=== PATIENT | female | born 1955 | race Caucasian/White ===

== ENCOUNTER 2023-11-11 20:50 | Inpatient (IN) | payer MEDICARE, OTHER, SELFPAY ==
[2023-11-11 16:56] VITALS: BP 165/81
[2023-11-11] MEDS: ZOSYN 50 IV (18:02)
[2023-11-11 18:06] VITALS: BP 136/57
[2023-11-11 18:08] LABS: % Basophils 0.4 % (0-2); % Eosinophils 0.6 % (0-6); % Immature Granulocytes 0.3 % (0-0.5); % Lymphocytes 14.2 % (20.5-51.1); % Monocytes 6.9 % (1.7-9.3); % Neutrophils 77.6 % (42.2-75.2); Absolute Eosinophils 0.1 10^3/uL (0-0.7); Absolute Lymphocytes 1.3 10^3/uL (1.2-3.4); Absolute Monocytes 0.7 10^3/uL (0.1-0.6); Absolute Neutrophils 7.3 10^3/uL (1.4-6.5); Hemoglobin 11.6 g/dL (12.0-16.0); Mean Corp Hgb Conc. 32.2 g/dL (33.0-37.0); Mean Corpuscular Hgb 30.4 pg (27.0-31.0); Mean Corpuscular Volume 94.2 fL (81.0-99.0); Mean Platelet Volume 8.9 fL (7.4-10.4); Nucleated Red Blood Cells % 0 %; Platelet Count 360 10^3/uL (130-400); Red Blood Cell Count 3.82 10^6/uL (4.20-5.40); Red Cell Dist. Width 13.1 % (11.5-14.5); White Blood Cell Count 9.4 10^3/uL (4.8-10.8)
[2023-11-11 18:19] LABS: Lactic Acid 0.6 mmol/L (0.7-2.0)
[2023-11-11 18:22] LABS: ALT (SGPT) 21 U/L (0-35); AST (SGOT) 22 U/L (14-36); Albumin 4.2 g/dl (3.5-5.0); Alkaline Phosphatase 69 U/L (38-126); Blood Urea Nitrogen 22 mg/dl (7-17); Calcium 9.7 mg/dl (8.4-10.2); Carbon Dioxide 27 mmol/L (22-30); Chloride 100 mmol/L (98-107); Glucose 85 mg/dl (70-99); Potassium 4.5 mmol/L (3.5-5.1); Sodium 134 mmol/L (135-145); Total Bilirubin 0.2 mg/dl (0.2-1.3); Total Protein 7.5 g/dl (6.3-8.2); eGFR > 60.00
[2023-11-11] MEDS: VANCOCIN 200 IV ×2 (18:36→23:41)
[2023-11-11 19:00] VITALS: BP 136/45
--- NOTE | 2023-11-11 19:26 | ED.GENMED ---
History of Present Illness
General
Chief Complaint: Skin Problem
Source: patient and other (Friend)
Exam Limitations: none
Time Seen by Provider: 11/11/23 17:21
Travel History
Have you had any contact with someone who has COVID-19?: No
Do you have any symptoms of coronavirus? Fever > 100 degrees, chills, cough, shortness of breath, sore throat, loss of taste or smell, muscle aches, or headache?: No
History of Present Illness
History of Present Illness:
68-year-old female with a history of rheumatoid arthritis and lupus who presents with worsening redness of bilateral lower EXTR knees, worsening ulcerative lesions. The patient history of pyoderma gangrenosum. Patient was seen by dermatology who
had cultures performed. They trialed gentamicin but the patient could not tolerate it was sent for IV antibiotics. Patient denies fevers but reports that the pain and redness is worsening. She is being treated for rheumatoid arthritis. She is
scheduled to maybe start Remicade as well
Past History
Past History
ED Past Medical History: Hypothyroidism, Psychiatric (Depression) and Other (Rheumatoid arthritis, lymphedema, pyoderma gangrenosum)
ED Past Surgical History: Orthopedic (Right hip surgery)
Social History
Tobacco: Non-smoker
Alcohol: None
Drug: None
Living: half-way
Phy Exam
Physical Exam
Physical Exam:
CONSTITUTIONAL Vital signs reviewed, Patient alert and oriented to person, place and time. Well-appearing
HEAD atraumatic, normocephalic.
EYES eyelids normal to inspection, Extraocular muscles intact, Conjunctiva normal, Sclera normal.
NECK normal range of motion, Trachea midline, no jugular venous distention.
RESP no respiratory distress
BACK No obvious deformities
UPPER EXTREMITY Gross Range of motion normal, gross motor strength normal
LOWER EXTREMITY Gross range of motion normal, Gross motor strength normal, significant redness bilaterally from the toes to the tibial tuberosity. There are petechial lesions at the proximal portion. There is diffuse redness of the lower
extremities. She has 2 large ulcerative lesions. She has an ulcerative lesion to the lateral aspect of the left lower extremity just above the lateral malleolus. She also has an ulcerative lesion to the medial aspect of the right lower extremity
just above the medial malleolus. There is an exudative base. She does have warm and well-perfused feet.
NEURO Speech normal, No focal motor deficits include, [place] coma scale 15, Memory normal, Cranial Nerves intact to screening exam.
SKIN Skin warm, dry, and normal in color.
PSYCHIATRIC Patient oriented to person place and time, Normal affect.
Course
Orders/Labs/Results
Orders:
Orders
11/11/23 17:41
Piperacillin/Tazo 3.375 Gram [Zosyn] 3.375 gram in 50 ml IV NOW
Vancomycin 1 Gram/200 ml [Vancocin] 1 gram in 200 ml IV NOW
11/11/23 17:57
Complete Blood Count/With Diff Urgent
Comprehensive Metabolic Panel Urgent
Lactic Acid Q4H
Comment: CANCEL 2nd LACTIC ACID IF 1st LACTIC ACID IS LESS THAN 2
Blood Culture Q30M
WALE Source: Blood/Venous
Specimen Description:
Blood Culture Q30M
WALE Source: Blood/Venous
Specimen Description:
11/11/23 21:45
Lactic Acid Q4H
Comment: CANCEL 2nd LACTIC ACID IF 1st LACTIC ACID IS LESS THAN 2
Abnormal Lab Results
11/11/23
17:57
RBC 3.82 L 10^6/uL
(4.20-5.40)
Hgb 11.6 L g/dL
(12.0-16.0)
Hct 36.0 L %
(37.0-47.0)
MCHC 32.2 L g/dL
(33.0-37.0)
Absolute Neuts (auto) 7.3 H 10^3/uL
(1.4-6.5)
Absolute Monos (auto) 0.7 H 10^3/uL
(0.1-0.6)
Neutrophils % 77.6 H %
(42.2-75.2)
Lymphocytes % 14.2 L %
(20.5-51.1)
Sodium 134 L mmol/L
(135-145)
BUN 22 H mg/dl
(7-17)
Creatinine 0.5 L mg/dL
(0.6-1.0)
Lactic Acid 0.6 L mmol/L
(0.7-2.0)
11/11/23 17:57
11/11/23 17:57
Vital Signs
Initial and Last Documented VS:
Initial Vital Signs
Temp Pulse Resp BP Pulse Ox
98.6 F 63 18 165/81 98
11/11/23 16:56 11/11/23 16:56 11/11/23 16:56 11/11/23 16:56 11/11/23 16:56
Last Documented Vital Signs
Temp Pulse Resp BP Pulse Ox
98.6 F 54 16 136/57 99
11/11/23 16:56 11/11/23 18:45 11/11/23 18:45 11/11/23 18:06 11/11/23 18:45
MDM/Problems Addressed
MDM/Problems Addressed:
Pyoderma gangrenosum, acute cellulitis, ulcerative skin lesion
*Pulse Oximetry
Patient hypoxic: no
*Critical Care Note
Total Time (30-74mins, 75-104mins- exclusive of procedures): Not Applicable
Data Reviewed
Review of Other/Old Records Reveals: Discharge Summary (From 2020)
Source: patient
Further Testing Considered But Not Given:
Considered ultrasound but no evidence of DVT
Patient Management
Discussion with other providers: Hospitalist
Escalation/DeEscalation of care consider admission/obs:
Sick 8-year-old female with progressive redness of the lower extremities. IV antibiotics. Admit
ED Attending Note
-
Portions of this chart may have been created with voice recognition software.� Occasional wrong word or��sound alike� substitutions may have occurred due to the inherent limitations of voice recognition software.
Discharge Plan
Departure
Patient Disposition: Admit
Date of Disposition: 11/11/23
Time of Disposition: 19:28
Admit to: Med/Surg
Presentation/result/management discussed w/ accepting MD/DO: Hospitalist
Discharge Problem:
Pyoderma gangrenosum, Cellulitis
Prescriptions:
No Action
levothyroxine 125 MCG tablet
125 mcg PO DAILY@0700
Patient Comments:
12/06/2020: PT STATES NEEDS BRAND NAME
ascorbic acid (vitamin C) [Vitamin C] 500 MG tablet
1,000 mg PO DAILY
Patient Comments:
Stopped for surgery
magnesium 250 MG tablet
500 mg PO DAILY@1200
Patient Comments:
10/10/2020: PT STATES HAS WITH HER, AND NEEDS AT NIGHT TO PROVENT LEG CRAMPS
cyanocobalamin (vitamin B-12) 5,000 MCG capsule
5,000 mcg PO DAILY
hydroxychloroquine 200 MG tablet
200 mg PO QPM
escitalopram oxalate 5 MG tablet
5 mg PO DAILY
cholecalciferol (vitamin D3) 2,000 UNITS tablet
2,000 units PO DAILY
Patient Comments:
Stopped for surgery
Lactobacillus acidophilus [Probiotic] 1 EACH capsule
2 ea PO DAILY
peg 400-propylene glycol (PF) [Systane (PF)] 1 EACH dropperette
2 drp BOTH EYES DAILYPRN PRN (Reason: dry eyes)
lorazepam 0.5 MG tablet
0.5 mg PO Q8H Qty: 12 0RF
docusate sodium 100 MG capsule
100 mg PO BID 0RF
celecoxib 200 MG capsule
200 mg PO DAILY Qty: 14 0RF
Rx Instructions:
Take with food.
Do not take within 2 hours of Aspirin.
pantoprazole 40 MG tablet,delayed release (DR/EC)
40 mg PO DAILY Qty: 14 0RF
Rx Instructions:
Take daily while on Celebrex.
ferrous sulfate [Slow Fe] 142 MG tablet extended release
142 mg PO DAILY Qty: 30 0RF
mupirocin 1 APPLIC ointment
1 applic topical TID Qty: 1 0RF
Rx Instructions:
Apply to sides of bilateral lower extremities due to stasis dermatitis.
mupirocin 1 APPLIC ointment
1 applic intranasal BID Qty: 1 0RF
Rx Instructions:
Apply to nares twice a day until incision is fully healed.
bisacodyl [OneLAX Bisacodyl] 10 MG suppository
10 mg OK DAILYPRN PRN (Reason: NO BM 8HRS AFTER MOM)
sodium phosphates [Enema] 135 ML enema
118 ml RC DAILYPRN PRN (Reason: NO BM 8RS AFTER SUPP)
metaxalone [Skelaxin] 800 MG tablet
800 mg PO TIDPRN PRN (Reason: MUSCLE SPASMS)
menthol [Icy Hot Advanced Relief Patch] 1 EACH adhesive patch,medicated
2 ea topical DAILY
pediatric multivitamin no.17 1 TABLET tablet,chewable
2 ea PO DAILY
magnesium hydroxide 30 ML suspension
30 ml PO HSPRN PRN (Reason: NO BM X2 DAYS)
acetaminophen 325 MG tablet
650 mg PO Q6HPRN PRN (Reason: mild pain/ fever>100.5F) 0RF
doxycycline hyclate 100 MG capsule
100 mg PO Q12 Qty: 14 0RF
polyethylene glycol 3350 17 GRAMS powder in packet
17 grams PO DAILY 0RF
aspirin 325 MG tablet
325 mg PO DAILY 0RF
prochlorperazine maleate 5 MG tablet
5 mg PO Q6HPRN PRN (Reason: nausea/vomiting) 0RF
tramadol 50 MG tablet
100 mg PO Q6HPRN PRN (Reason: moderate pain) Qty: 12 0RF
tramadol 50 MG tablet
50 mg PO Q6HPRN PRN (Reason: mild pain unrelieved by apap) Qty: 12 0RF
hydromorphone 2 MG tablet
2 mg PO Q4HPRN PRN (Reason: severe pain) Qty: 18 0RF
magnesium hydroxide 30 ML suspension
30 ml PO DAILYPRN PRN (Reason: constipation) 0RF
alum-mag hydroxide-simeth [Mag-Al Plus] 30 ML suspension
30 ml PO Q4HPRN PRN (Reason: INDIGESTION) 0RF
Referrals:
Andrea Mederos, DO [Family Provider] -
Interventions
Interventions:
*Risk Screen - Suicide Last Done: 11/11/23 16:56
*General Assessment Last Done: 11/11/23 16:56
*Neglect/Abuse Screening Last Done: 11/11/23 16:56
*ED COVID-19 Vaccine History Last Done: 11/11/23 16:56
ED-Skin Assessment Last Done: 11/11/23 18:00
[2023-11-11] MEDS: TYLENOL 1000 MG PO (19:34)
[2023-11-11 20:00] VITALS: BP 143/58
--- NOTE | 2023-11-11 20:23 | HPS.HSE ---
Addendum entered and electronically signed by Leo Liu MD 11/11/23 20:48:
Patient seen and examined independently with PA.� 68-year-old female past medical history of pyoderma gangrenosum, rheumatoid arthritis on Rinvoq, hypothyroidism, presenting for worsening bilateral redness and pain of lower extremities.� Patient
recently had wound culture and was prescribed gentamicin with worsening of symptoms over the past week by her suture polisher at [place] and so was recommended to come to the hospital for IV antibiotics.� Wound care, blood cultures, vancomycin/Zosyn.
Original Note:
Family Physician
-
Family Physician: Andrea Mederos
Chief Complaint
-
Worsening lower extremity wounds
History of Present Illness
Patient is a 68 y/o female with PMH of pyoderma gangrenosum, hypothyroidism, rheumatoid arthritis, and lupus who presented to the ED with worsening bilateral lower extremity wounds. Patient was seeing a suture polisher weekly for the past year for
management of her pyoderma gangrenosum. Last week she started seeing a new suture polisher who ordered wound cultures and gentamicin. Patient experienced worsening erythema of bilateral lower extremities upon staring gentamicin so this was
discontinued. Patient reports that when the cultures resulted, her suture polisher strongly recommended that she go to the ED for IV antibiotic therapy. She admits to low grade fever last week of 100.9F which improved with Tylenol. She denies sweats
or chills.
Medical History
Past Medical History
Past Medical History: Reports Other
Additional Past Medical History:
Pyoderma Gangrenosum
Hypothyroidism
Rheumatic Heart Disease
Rheumatoid Arthritis
Lupus
Irritable Bowel Syndrome
Anemia
Past Surgical History: Reports Other
Additional Past Surgical History:
Bilateral Total Knee Replacement
Right Total Hip Replacement
Right Total Hip Arthroplasty Revision
Resection Chin Osteosarcoma
Myomectomy
Social History
Tobacco: Non-smoker
Alcohol: None
Family History
Family History: Not pertinent
Allergies / Home Medications
Allergies reflects when Allergies were last updated in Spool.
Home Medications with original date entered in Spool
Allergy/Medication List:
Allergies
Allergy/AdvReac Type Severity Reaction Status Date / Time
codeine Allergy Hives, Verified 11/11/23 16:59
Redness,
Vomiting
latex Allergy Redness, Verified 11/11/23 16:59
Itching
Opioids - Morphine Analogues Allergy Nausea / Verified 11/11/23 16:59
Vomiting,
Dizziness
levofloxacin [From Levaquin] AdvReac SOB, Verified 11/11/23 16:59
'Pneumonia'
metronidazole [From Flagyl] AdvReac Hives, Verified 11/11/23 16:59
Redness,
Vomiting,
Swelling
Home Medications
ascorbic acid (vitamin C) 500 mg tablet (Vitamin C) 2,000 mg PO DAILY Supplement 10/10/20
levothyroxine 125 mcg tablet 125 mcg PO DAILY@0700 Thyroid 10/10/20
cholecalciferol (vitamin D3) 50 mcg (2,000 unit) tablet 2,000 units PO DAILY Supplement 06/06/21
pediatric multivitamin no.17 1 ea PO DAILY 07/01/21
acetaminophen 500 mg tablet 1,000 mg PO Q6H PRN mild pain 11/11/23
acetylcysteine 600 mg capsule (NAC) 600 mg PO DAILY@1500 11/11/23
cyanocobalamin (vitamin B-12) 1,000 mcg tablet (Vitamin B-12) 2,000 mcg PO DAILY 11/11/23
ibuprofen 600 mg tablet 600 mg PO Q8H PRN mild pain 11/11/23
upadacitinib 15 mg tablet,extended release 24 hr (Rinvoq) 15 mg PO DAILY@199911/11/23
Review of Systems
-
A 12 point ROS was completed and negative except as noted: Yes
Constitutional: Reports Fever (100.9 about one week ago)
Respiratory: Denies Cough or Trouble Breathing
Cardiac: Denies Chest Pain or Palpitations
Abdomen/GI: Denies Abdominal Pain, Nausea or Vomiting
Physical Exam
Vital Signs
Vital Signs
Temp Pulse Resp BP Pulse Ox
98.6 F 56 16 143/58 98
11/11/23 16:56 11/11/23 20:00 11/11/23 20:00 11/11/23 20:00 11/11/23 20:00
Physical Exam
General: Comfortable and Conversant
HEENT: Anicteric and Moist mucous membranes
Respiratory: Clear and Non Labored Respirations
Cardiac: S1/S2 and Regular Rhythm
GI: Soft and Non Tender
Rectal: Deferred by Provider
Musculoskeletal: No Clubbing and No Cyanosis
Skin: Other (Bilateral lower extremity wound with apparent areas of necrosis; Significant erythema bilateral lower ext from feet to just below the knees)
Neuro: Awake, Alert, Oriented and Nonfocal/grossly intact
Laboratory Results
-
11/11/23 17:57
11/11/23 17:57
Laboratory Results
Lactic Acid 0.6 mmol/L (0.7-2.0) L 11/11/23 17:57
Total Bilirubin 0.2 mg/dl (0.2-1.3) 11/11/23 17:57
AST 22 U/L (14-36) 11/11/23 17:57
ALT 21 U/L (0-35) 11/11/23 17:57
Alkaline Phosphatase 69 U/L (38-126) 11/11/23 17:57
Data Reviewed
-
Lab Data: Labs Reviewed by me
Impression/Plan
-
Worsening Bilateral Lower Extremity Wounds with Cellulitis
-Consult Wound Care
-Continue Vancomycin and Zosyn
-Await blood cultures
Hypothyroidism
-Continue levothyroxine
Rheumatoid Arthritis
-Hold Rinvoq given concern for acute infection
DVT proph: Lovenox
Code Status: Full Code
[2023-11-11 21:43] VITALS: BP 136/53; BMI 35.9
[2023-11-11 22:57] VITALS: BP 114/52
[2023-11-11] MEDS: TORADOL 15 MG IV (23:35)
[2023-11-12] MEDS: ZOSYN 50 IV ×5 (01:20→23:28)
[2023-11-12] MEDS: TYLENOL 1000 MG PO ×2 (05:10→15:31)
[2023-11-12] MEDS: NON-FORMULARY ITEM 125 MCG PO (05:11)
--- NOTE | 2023-11-12 06:11 | PTCARENOTE ---
Pt arrived onto floor @2143. Was able to ambulate into room with minimal assistance. Pt AAOx3 with stable vital signs. Pt oriented to room and call carvajal, will continue to monitor
[2023-11-12 07:00] VITALS: BP 141/61
[2023-11-12] MEDS: VITAMIN C 2000 MG PO (08:52)
[2023-11-12] MEDS: VITAMIN D3 (cholecalciferol) 50 MCG PO (08:52)
[2023-11-12] MEDS: VITAMIN B-12 2000 MCG PO (08:52)
--- NOTE | 2023-11-12 09:58 | PHA.VAN.IN ---
Assessment
- Assessment
Renal Function: Appears similar to baseline
Concomitant Antimicrobials: piperacillin/tazobactam
- Previous Dosing Experience
Previous Regimen: Vanc 1250mg Q12H
Date of Regimen: November 2020
Provided Trough of: 12
Provided AUC of: 430
Patient's SCR is: Similar to previous dosing experience
Patient's weight is: Similar to previous dosing experience
Regimen provided the following additional patient-specific pk:
Extrapolated Cmax (mcg/mL): 24.6
Extrapolated Cmin (mcg/mL): 12.4
Calculated ke: 0.0651
Calculated half life (H): 10.7
Calculated Vd (L): 89
Calculated Vanc CL (ml/min): 97
AUC Dosing Plan
- Dosing Variables
Dosing Weight (kg): 86
Dosing CrCl (ml/min): 91
Vd coefficient (L/kg): 0.7
- Empiric Dosing
Initial / Loading Dose: 2000mg - 18 (1g 18:36 PLUS 1g 23:41)
Maintenance Regimen: Vanc 1250mg Q12H starting at 1800
Estimated AUC (mcg*h/mL): 551
Estimated Peak (mcg*h/mL): 33.7
Estimated Trough (mcg/ml): 14.5
Estimated Half Life (H): 8.7
Based on prior experience, will dose empirically with 1250mg Q12H
Prior experience ~3 years ago, may have some decreased clearance since that time
- Monitoring
No levels ordered at this time: consider levels in next few days
Pharmacokinetics Vancomycin I
- -
Patient Age: 68
Patient Sex: Female
Vancomycin Day #: 1
Indication: Skin And Soft Tissue
Requesting Provider: Jeff Jensen
Pertinent Antimicrobial Allergies:
levofloxacin - SOB, pneumonia
metronidazole - hives, redness, vomiting, swelling
Height / Weight:
Height 5 ft 1 in
Actual Weight 86.183 kg
Pertinent Past Medical History: BMI ~36
- Vital Signs / Lab Results
Temp Pulse Resp BP Pulse Ox
98.6 F 47 17 141/61 97
11/12/23 07:00 11/12/23 07:00 11/12/23 07:00 11/12/23 07:00 11/12/23 07:00
Lab Results - Hematology
11/11/23
17:57
WBC 9.4
Lab Results - Chemistry
11/11/23
17:57
BUN 22 H
Creatinine 0.5 L
Albumin 4.2
11/11/23 11/11/23
17:57 21:45
Lactic Acid 0.6 L Cancelled
--- NOTE | 2023-11-12 11:21 | WOUNDNOTE ---
R MEDIAL LOWER LEG
--- NOTE | 2023-11-12 11:21 | WOUNDNOTE ---
L LATERAL LOWER LEG
--- NOTE | 2023-11-12 11:22 | WOUNDNOTE ---
WON RN note: Patient admitted with cellulitis of legs and ongoing Pyoderma Gangrenosum.
See H&P for complete history.
PMH: venous stasis ulcers, asthma, RA, lymphedema, cellulitis, bilateral knee replacements and PG of legs.
Wound Location and type/assessment: Both legs with redness and +1-2 edema, + palpable pedal pulses, heels blanchable red. Sacrum and buttocks are intact. Patient ambulated from bathroom to bed without difficulty. Patient complains of pain to legs
and wounds which has been going on for a long time. Patient known to service for Venous stasis dermal ulcers back in November 2020. She then followed up with [facility] December 2020. Unable to tolerate most dressings, steroids and compression. Takes Tylenol or
Motrin for pain patient states. Arterial Doppler done 10/11/20 report stated 'normal' Patient reports she has been seeing a electric truck crane operator at [place] named Dr. Das, she gave phone# [phone]. Reviewed with patient current wound care and skin care
per this electric truck crane operator, will try and confirm. Next step is going to be IV Remicade reports patient, to treat the PG.
Appetite: fair.
Pressure redistribution devices in place: [employer] Accumax. Patient independent with ADL's uses a cane.
Plan: Legs and wounds washed with Vashe, soaked open wounds for a few minutes, patient tolerated. Applied Vaseline to legs and feet, Vaseline applied to Telfa and placed into open wounds. Dressings to be changed bid, patient can take shower if ok
with hospitalist, instead of cleaning with Vashe. Encouraged LE elevation when sitting, refusing compression to legs. Called [facility] for Vashe and 3x3 size Telfa. Today used patient's supply of Telfa.
Will confirm orders with hospitalist and updated nurse [place]. Nursing care plan to be updated and will follow as needed. Note to case management requested for discharge: VN consult if patient wants.
Recommend follow with her electric truck crane operator upon discharge.
--- NOTE | 2023-11-12 11:27 | W.PN.HOSP.TC ---
Today's Communication/Plan
-
Monitor vital signs and see plan
Continue with antibiotics
Consult infectious disease
wound care
Assessment / Plan
Assessment / Plan
General: Comfortable and Conversant
HEENT: Anicteric and Moist mucous membranes
Respiratory: Clear and Non Labored Respirations
Cardiac: S1/S2 and Regular Rhythm
GI: Soft and Non Tender
Skin: Other (Bilateral lower extremity wound with apparent areas of necrosis; Significant erythema bilateral lower extremities)
Neuro: Awake, Alert, Oriented and Nonfocal/grossly intact
Worsening Bilateral Lower Extremity Wounds with superimposed cellulitis with pyoderma
Patient is currently following up with dermatology at [facility]; per patient she has not been able to tolerate steroids and due to side effect profile she does not want steroids
-Consult Wound Care consulted
Consult ID
would need wound cultures that were drawn in dermatology office; per patient its pseudomonas and few more bacteria
-Continue Vancomycin and Zosyn
-Await blood cultures
Hypothyroidism
-Continue levothyroxine
Mild hyponatremia
Monitor
Anemia of chronic disease
Monitor
Rheumatoid Arthritis
hx of Lupus
-Hold Rinvoq given concern for acute infection
per patient she is soon to be started on remicade infusions
DVT proph: Lovenox
Code Status: Full Code
Anticipated Discharge: > 48 hours
Subjective/Interval History
-
Date of Service: November 12, 2023
denies fever
Objective Data
-
Vital Signs:
Vital Signs
Temp Pulse Resp BP Pulse Ox
98.6 F 47 17 141/61 97
11/12/23 07:00 11/12/23 07:00 11/12/23 07:00 11/12/23 07:00 11/12/23 07:00
--- NOTE | 2023-11-12 13:32 | CM ---
Patient seen at bedside. Patient stated that she lives alone, in a rancher. Patient states that she has no DME at home. PCP Dr. Millan, [facility] [place] and she is considering [facility], [facility] or [facility] if VN recommended
closer to discharge. CM will continue to follow for discharge planning needs.
Plan; home with VN vs home with no needs.
[2023-11-12 15:00] VITALS: BP 142/65
--- NOTE | 2023-11-12 16:33 | CON.ID ---
Consultation
-
Date/Time Consultation Requested: 11/12/2023 1130
Date/Time Consultation Performed: 11/12/2023 1545
Requesting Provider: Dr. Villagran
Performing Provider: Dr. Heard
Reason for Consultation: Lower extremity cellulitis
Chief Complaint / Past History
History of Present Illness
Kayleigh Kendall is a 68-year-old female being evaluated at the request of Dr. Villagran in regards to lower extremity wounds and cellulitis. History is obtained from chart review, along with patient interview.
The patient is known to the Infectious Diseases service, having been seen in 2020 for lower extremity leg ulcerations. She additionally had previously been followed in the wound care center here at [facility]. She reports that she has been
followed in the outpatient setting by her student affairs dean who last week began her on topical gentamicin applied to the bilateral lower extremities. The patient reports that after a single application she developed increasing erythema and burning of
the lower extremities. She stopped further applications. She spoke with dermatology several days later and ultimately because of the leg discomfort was advised to come to the hospital for further evaluation.
She notes that she has been diagnosed with pyoderma gangrenosum, although she denies ever having a biopsy of the lower extremities stating that it would be too painful. She does not use lower extremity compressive modalities for the edema, stating
that 'my skin is too fragile and it would be too painful'.
At this time she notes 'stomach pains' secondary to the antibiotics that she has been prescribed here at the hospital and notes that her lower extremities are 'burning', but improved since she started the antibiotics. She denies any recent fevers
or chills.
Past History
Additional Past Medical History:
Rheumatoid arthritis
Lower extremity lymphedema
Obesity
Additional Past Surgical History:
Bilateral knee replacement
Allergy History:
codeine Allergy (Verified 11/11/23 16:59)
Hives, Redness, Vomiting
latex Allergy (Verified 11/11/23 16:59)
Redness, Itching
levofloxacin [From Levaquin] Allergy (Verified 11/11/23 21:17)
SOB, 'Pneumonia'
metronidazole [From Flagyl] Allergy (Verified 11/11/23 21:17)
Hives, Redness, Vomiting, Swelling
Opioids - Morphine Analogues Allergy (Verified 11/11/23 16:59)
Nausea / Vomiting, Dizziness
Medications Reviewed: Yes
Current Antibiotics:
Vancomycin
Zosyn
Social History
Tobacco: Non-Smoker
Alcohol: None
Drug: None
Personal: Single
Living: Alone
Employment: Retired
Family History
Family History: Not Pertinent
Review of Systems
Vital Signs
Temp Pulse Resp BP Pulse Ox
98 F 64 17 142/65 93
11/12/23 15:00 11/12/23 15:00 11/12/23 15:00 11/12/23 15:00 11/12/23 15:00
Physical Exam
Physical Exam
Constitutional: No Acute Distress, Comfortable, Chronically Ill and Non-toxic
Head: Normocephalic
Eyes: Pupils Equal, Pupils Round, No Conjunctival Hemorrhage and Sclera Anicteric
Oral: No Thrush and No Ulcers
Cardiovascular: S1/S2; Negative S3/S4 or Murmur
Pulmonary: Non Labored; Negative Wheezes, Rales or Rhonchi
Gastrointestinal: Non Tender, Non Distended and Normal Bowel Sounds
Extremities: Edema, Erythema and Venous Insufficiency (B/L LE's)
Wound: Other (Bilateral lower extremity wounds noted. Slough noted in base. Scant amount of dermal necrosis. No purulence)
Neurological: Awake and Alert
Psychological: Calm
.
Lab / Diagnostic Study Results
11/11/23 17:57
11/11/23 17:57
Abs Immat Gran (auto) 0.0 10^3/uL (0-0.05) 11/11/23 17:57
Absolute Neuts (auto) 7.3 10^3/uL (1.4-6.5) H 11/11/23 17:57
Absolute Lymphs (auto) 1.3 10^3/uL (1.2-3.4) 11/11/23 17:57
Absolute Monos (auto) 0.7 10^3/uL (0.1-0.6) H 11/11/23 17:57
Absolute Basos (auto) 0.0 10^3/uL (0-0.2) 11/11/23 17:57
Immature Gran % 0.3 % (0-0.5) 11/11/23 17:57
Neutrophils % 77.6 % (42.2-75.2) H 11/11/23 17:57
Lymphocytes % 14.2 % (20.5-51.1) L 11/11/23 17:57
Monocytes % 6.9 % (1.7-9.3) 11/11/23 17:57
Eosinophils % 0.6 % (0-6) 11/11/23 17:57
Basophils % 0.4 % (0-2) 11/11/23 17:57
Lactic Acid Cancelled 11/11/23 21:45
Microbiology Results
Micro:
11/12/23 00:06 MRSA Screen - Pending
Nose
11/11/23 17:57 Blood Culture - Pending
Blood/Venous
11/11/23 17:57 Blood Culture - Pending
Blood/Venous
Assessment / Plan
Lower extremity erythema
-Not clear whether secondary to cellulitis or contact dermatitis secondary to recent gentamicin application
Bilateral lower extremity wounds
Reported history of pyoderma gangrenosum
-Not clear how diagnosis was made as patient denies ever having been biopsied.
Obesity
Rheumatoid arthritis
Recommendations:
Continue with empiric vancomycin and Zosyn for the present.
Lower extremity elevation recommended to the patient, but patient declined secondary to hip discomfort from her rheumatoid arthritis
Advised lower extremity compression, but patient declined stating that it is too painful.
Follow for clinical improvement.
Little role for superficial wound culture as there is likely significant colonization of the skin and wounds with bacteria.
Will further discuss with Wound care tomorrow regarding local care to the lower extremities.
Follow Vanco levels.
Monitor white count and temperature curve.
Patient reports that she would like to shower, but in discussions with nursing, she has complained of weakness and has been found to be unsteady on her feet. Will await physical therapy evaluation of her tomorrow before allowing to shower.
Care Review
Plan reviewed with: Physician (Hospitalist)
[2023-11-12] MEDS: VANCOCIN 275 MG IV (18:03)
[2023-11-12] MEDS: TORADOL 15 MG IV (19:56)
[2023-11-12] MEDS: ZOFRAN 4 MG IV (20:02)
[2023-11-12 22:50] VITALS: BP 131/62
[2023-11-13] MEDS: TYLENOL 1000 MG PO ×3 (00:54→21:24)
[2023-11-13] MEDS: GAVISCON LIQUID 15 ML PO (01:56)
[2023-11-13] MEDS: ZOSYN 50 IV ×4 (05:26→23:06)
[2023-11-13] MEDS: TORADOL 15 MG IV ×2 (06:03→18:31)
[2023-11-13] MEDS: NON-FORMULARY ITEM 125 MCG PO (06:12)
[2023-11-13] MEDS: VANCOCIN 275 MG IV ×2 (06:59→18:20)
[2023-11-13 07:30] VITALS: BP 113/43
[2023-11-13 08:37] LABS: % Basophils 0.5 % (0-2); % Eosinophils 1.3 % (0-6); % Immature Granulocytes 0.3 % (0-0.5); % Lymphocytes 12.4 % (20.5-51.1); % Monocytes 7.7 % (1.7-9.3); % Neutrophils 77.8 % (42.2-75.2); Absolute Eosinophils 0.1 10^3/uL (0-0.7); Absolute Lymphocytes 0.8 10^3/uL (1.2-3.4); Absolute Monocytes 0.5 10^3/uL (0.1-0.6); Absolute Neutrophils 4.9 10^3/uL (1.4-6.5); Hematocrit 32.7 % (37.0-47.0); Hemoglobin 10.3 g/dL (12.0-16.0); Mean Corp Hgb Conc. 31.5 g/dL (33.0-37.0); Mean Corpuscular Hgb 30.2 pg (27.0-31.0); Mean Corpuscular Volume 95.9 fL (81.0-99.0); Nucleated Red Blood Cells % 0 %; Platelet Count 305 10^3/uL (130-400); Red Blood Cell Count 3.41 10^6/uL (4.20-5.40); Red Cell Dist. Width 13.5 % (11.5-14.5); White Blood Cell Count 6.3 10^3/uL (4.8-10.8)
[2023-11-13 09:10] LABS: ALT (SGPT) 16 U/L (0-35); AST (SGOT) 17 U/L (14-36); Albumin 3.6 g/dl (3.5-5.0); Alkaline Phosphatase 65 U/L (38-126); Blood Urea Nitrogen 21 mg/dl (7-17); Carbon Dioxide 28 mmol/L (22-30); Chloride 101 mmol/L (98-107); Estimated Creatinine Clearance 91 ml/min; Glucose 104 mg/dl (70-99); Potassium 4.2 mmol/L (3.5-5.1); Sodium 135 mmol/L (135-145); Total Bilirubin 0.5 mg/dl (0.2-1.3); Total Protein 6.6 g/dl (6.3-8.2); eGFR > 60.00
--- NOTE | 2023-11-13 09:30 | PHA.VAN.FU ---
Vancomycin Assessment / Plan
- Assessment
Renal Function: Stable
WBC's are: WNL
In the past 24 hrs, patient has been: Afebrile
Concomitant Antimicrobials: piperacillin/tazobactam
- Dosing Plan
Continue: Vanc 1250mg Q12H
- Monitoring Plan
Peak Level: 11/12 21:00
Trough Level: 11/13 05:30
Monitoring Comments: levels to be drawn after 3rd maintenance dose
- Follow Up
Pharmacy will continue to follow.
Vancomycin Follow UP
- -
Patient Age: 68
Patient Sex: Female
Vancomycin Day #: 2
Indication: Skin And Soft Tissue
Requesting Provider: Jeff Heard
Pertinent Antimicrobial Allergies:
levofloxacin - SOB, pneumonia
metronidazole - hives, redness, vomiting, swelling
Height / Weight:
Height 5 ft 1 in
Actual Weight 86.183 kg
Pertinent Past Medical History: BMI ~36
- Vital Signs / Lab Results
Temp Pulse Resp BP Pulse Ox
97.7 F 48 18 113/43 97
11/13/23 07:30 11/13/23 07:30 11/13/23 07:30 11/13/23 07:30 11/13/23 07:30
Lab Results - Hematology
11/11/23 11/13/23
17:57 08:08
WBC 9.4 6.3
Lab Results - Chemistry
11/11/23 11/13/23
17:57 08:08
BUN 22 H 21 H
Creatinine 0.5 L 0.6
Estimated Creat Clear 91
Albumin 4.2 3.6
11/11/23 11/11/23
17:57 21:45
Lactic Acid 0.6 L Cancelled
Microbiology Results
11/12/23 00:06 MRSA Screen - Final
Nose Staph aureus MRSA
11/11/23 17:57 Blood Culture - Preliminary
Blood/Venous No Growth in 24 hours- Final report to follow
11/11/23 17:57 Blood Culture - Preliminary
Blood/Venous No Growth in 24 hours- Final report to follow
[2023-11-13] MEDS: VITAMIN C 2000 MG PO (09:43)
[2023-11-13] MEDS: VITAMIN B-12 2000 MCG PO (09:43)
[2023-11-13] MEDS: VITAMIN D3 (cholecalciferol) 50 MCG PO (09:44)
--- NOTE | 2023-11-13 10:49 | W.PN.ID1 ---
Date of Service
Date of Service: November 13, 2023
Today's Communication
Continue current antibiotic
Assessment / Plan
Lower extremity erythema
-Not clear whether secondary to cellulitis or contact dermatitis secondary to recent gentamicin application
Bilateral lower extremity wounds
Reported history of pyoderma gangrenosum
-Patient reports history of biopsy of area
Suspected bilateral lower extremity venous insufficiency
Obesity
Rheumatoid arthritis
Recommendations:
Continue with empiric vancomycin and Zosyn for the present.
Lower extremity elevation recommended to the patient, but patient declined secondary to hip discomfort from her rheumatoid arthritis
Advised lower extremity compression, but patient declined stating that it is too painful.
Follow for clinical improvement.
Etiology of fine LE pustules unclear. Will sample; hopefully culture may guide etiology.
Follow Vanco levels.
Monitor white count and temperature curve.
����������������������������������������������������������
Chief Complaint
-: Cellulitis
Subjective / Review of Systems
Review of Systems: No Fever and No Chills
Vital Signs / Physical Exam
Vital Signs
Vital Signs
Temp Pulse Resp BP Pulse Ox
97.7 F 48 18 113/43 97
11/13/23 07:30 11/13/23 07:30 11/13/23 07:30 11/13/23 07:30 11/13/23 07:30
Physical Exam
Constitutional: No Acute Distress, Comfortable, Chronically Ill and Non-toxic
Eyes: Sclera Anicteric
Pulmonary: Non Labored
Extremities: Edema, Erythema, Venous Insufficiency and Other (Diffuse pustules over bilateral lower extremities)
Wound: Other (Bilateral lower extremity wounds noted; left distal lateral leg, right distal medial leg)
Neurological: Awake and Alert
Psychological: Calm
Objective Data
Lab Data
Lab Results
11/13/23 08:08
11/13/23 08:08
Estimated Creat Clear 91 ml/min 11/13/23 08:08
Lactic Acid Cancelled 11/11/23 21:45
Total Bilirubin 0.5 mg/dl (0.2-1.3) 11/13/23 08:08
AST 17 U/L (14-36) 11/13/23 08:08
ALT 16 U/L (0-35) 11/13/23 08:08
Alkaline Phosphatase 65 U/L (38-126) 11/13/23 08:08
Most recent labs reviewed.
Micro Results:
11/12/23 00:06 MRSA Screen - Final
Nose Staph aureus MRSA
11/11/23 17:57 Blood Culture - Preliminary
Blood/Venous No Growth in 24 hours- Final report to follow
11/11/23 17:57 Blood Culture - Preliminary
Blood/Venous No Growth in 24 hours- Final report to follow
Care Review
Plan reviewed with: Other (Wound Care Nurse)
--- NOTE | 2023-11-13 11:12 | CM ---
Patient seen bedside.
patient with lower extremity cellulitis and wounds.
patient with multiple concerns re when will she be discharged, who her doctors are, wound care, if she can shower, and if she could get Ensure ordered.
Patient with [facility] in the past and would like to have them again at d/c.
Wound cx pending.
Plan: home with [facility] when stable.
--- NOTE | 2023-11-13 11:44 | W.PN.HOSP.TC ---
Today's Communication/Plan
-
Monitor vitals
See plan
Follow wound cultures
Continue with antibiotics
Assessment / Plan
Assessment / Plan
General: Comfortable and Conversant
HEENT: Anicteric and Moist mucous membranes
Respiratory: Clear and Non Labored Respirations
Cardiac: S1/S2 and Regular Rhythm
GI: Soft and Non Tender
Skin: Other (Bilateral lower extremity wound with apparent areas of necrosis; Significant erythema bilateral lower extremities)
Neuro: Awake, Alert, Oriented and Nonfocal/grossly intact
Worsening Bilateral Lower Extremity Wounds with superimposed cellulitis with pyoderma
Patient is currently following up with dermatology at [facility]; per patient she has not been able to tolerate steroids and due to side effect profile she does not want steroids
-Wound Care following
ID following
Follow wound cultures
-Continue Vancomycin and Zosyn
-blood cultures pending
Hypothyroidism
-Continue levothyroxine
Mild hyponatremia
Monitor
Anemia of chronic disease
Monitor
Rheumatoid Arthritis
hx of Lupus
-Hold Rinvoq given concern for acute infection
per patient she is soon to be started on remicade infusions
DVT proph: Lovenox
Code Status: Full Code
Anticipated Discharge: 24 - 48 hours
Subjective/Interval History
-
Date of Service: November 13, 2023
does have some pain
Objective Data
-
Labs:
Laboratory Results
11/13/23
08:08
WBC 6.3
Hgb 10.3 L
Hct 32.7 L
Plt Count 305
Sodium 135
Potassium 4.2
Chloride 101
Carbon Dioxide 28
BUN 21 H
Creatinine 0.6
Glucose 104 H
Calcium 9.0
Total Bilirubin 0.5
AST 17
ALT 16
Alkaline Phosphatase 65
Vital Signs:
Vital Signs
Temp Pulse Resp BP Pulse Ox
97.7 F 48 18 113/43 97
11/13/23 07:30 11/13/23 07:30 11/13/23 07:30 11/13/23 07:30 11/13/23 07:30
I&O
11/12/23 11/13/23 11/14/23
06:59 06:59 06:59
Intake Total 2415 / 2415
Balance 2415 / 2415
--- NOTE | 2023-11-13 15:33 | VNURNOTE ---
Home Health Liaison met with patient at 1445 to discuss [facility] nurse/therapy, visits, schedule and homebound status. Patient is agreeable and understands that visits at home will be 2-3 x per week to assess and teach medical management and wound care.
Patient stated that she is able to do wound care on days there is no SN visit.
[facility] brochure provided with contact information. Patient is aware that [facility] will contact her for start of care in 1-2 days after discharge from .
[facility] referral completed in [facility].
[2023-11-13 16:15] VITALS: BP 117/59
[2023-11-13] MEDS: ZOFRAN 4 MG IV (20:29)
[2023-11-13 21:12] LABS: Vancomycin Peak 30.9 ug/ml (18-26)
[2023-11-13 23:36] VITALS: BP 140/49
[2023-11-14] MEDS: TORADOL 15 MG IV ×3 (00:07→21:04)
[2023-11-14] MEDS: TYLENOL 1000 MG PO ×3 (04:42→17:32)
[2023-11-14] MEDS: ZOSYN 50 IV ×2 (05:41→12:30)
[2023-11-14] MEDS: NON-FORMULARY ITEM 125 MCG PO (05:45)
[2023-11-14] MEDS: VANCOCIN 275 MG IV (06:28)
[2023-11-14 06:56] LABS: % Basophils 0.5 % (0-2); % Immature Granulocytes 0.2 % (0-0.5); % Lymphocytes 15.2 % (20.5-51.1); % Monocytes 7.5 % (1.7-9.3); % Neutrophils 74.6 % (42.2-75.2); Absolute Eosinophils 0.1 10^3/uL (0-0.7); Absolute Monocytes 0.5 10^3/uL (0.1-0.6); Absolute Neutrophils 4.8 10^3/uL (1.4-6.5); Hematocrit 32.2 % (37.0-47.0); Hemoglobin 10.4 g/dL (12.0-16.0); Mean Corp Hgb Conc. 32.3 g/dL (33.0-37.0); Mean Corpuscular Hgb 30.4 pg (27.0-31.0); Mean Corpuscular Volume 94.2 fL (81.0-99.0); Mean Platelet Volume 9.1 fL (7.4-10.4); Nucleated Red Blood Cells % 0 %; Platelet Count 290 10^3/uL (130-400); Red Blood Cell Count 3.42 10^6/uL (4.20-5.40); Red Cell Dist. Width 13.3 % (11.5-14.5); White Blood Cell Count 6.4 10^3/uL (4.8-10.8)
[2023-11-14 07:21] LABS: Vancomycin Trough 16.2 ug/ml (5-20)
[2023-11-14 07:25] LABS: ALT (SGPT) 16 U/L (0-35); AST (SGOT) 18 U/L (14-36); Albumin 3.7 g/dl (3.5-5.0); Alkaline Phosphatase 66 U/L (38-126); Blood Urea Nitrogen 20 mg/dl (7-17); Calcium 9.1 mg/dl (8.4-10.2); Carbon Dioxide 26 mmol/L (22-30); Chloride 100 mmol/L (98-107); Estimated Creatinine Clearance 91 ml/min; Glucose 100 mg/dl (70-99); Potassium 4.5 mmol/L (3.5-5.1); Sodium 135 mmol/L (135-145); Total Bilirubin 0.4 mg/dl (0.2-1.3); Total Protein 6.7 g/dl (6.3-8.2); eGFR > 60.00
[2023-11-14 07:30] VITALS: BP 124/52
--- NOTE | 2023-11-14 08:34 | PHA.VAN.FU ---
Vancomycin Assessment / Plan
- Assessment
Renal Function: Stable
WBC's are: WNL
In the past 24 hrs, patient has been: Afebrile
Concomitant Antimicrobials: piperacillin/tazobactam
- Assessment - Therapeutic Drug Monitoring
Extrapolated Cmax (mcg/mL): 33
Peak level was drawn: Less than 1 hour after previous dose (level drawn just less than 1H after end of prior infusion (~0.95H) which may lead to overstimation of peak and AUC and understimation of half-life)
Extrapolated Cmin (mcg/mL): 16.2
Trough Drawn: Appropriately
Levels were drawn: At steady state (levels drawn after 3rd maintenance dose)
Calculated AUC (mcg*h/mL): 569
Calculated ke: 0.0676
Calculated half life (H): 10.2
Calculated Vd (L): 64.91
Calculated Vanc CL (ml/min): 73
Unclear how much calculations are impacted by peak being drawn slightly early
Patient may still have additional accumulation and trough is higher than prior experience
- Dosing Plan
Adjust Regimen to: Vanc 1000mg Q12H
New Regimen Predicts: AUC (471), Peak (27.7), Trough (13.2)
- Monitoring Plan
No level(s) ordered at this time: consider repeat levels in next few days
- Follow Up
Pharmacy will continue to follow.
Vancomycin Follow UP
- -
Patient Age: 68
Patient Sex: Female
Vancomycin Day #: 3
Indication: Skin And Soft Tissue
Requesting Provider: Jeff Jensen / Félix
Pertinent Antimicrobial Allergies:
levofloxacin - SOB, pneumonia
metronidazole - hives, redness, vomiting, swelling
Height / Weight:
Height 5 ft 1 in
Actual Weight 86.183 kg
Pertinent Past Medical History: BMI ~36
- Vital Signs / Lab Results
Temp Pulse Resp BP Pulse Ox
97.5 F 46 18 124/52 100
11/14/23 07:30 11/14/23 07:30 11/14/23 07:30 11/14/23 07:30 11/14/23 07:30
Lab Results - Hematology
11/11/23 11/13/23 11/14/23
17:57 08:08 06:20
WBC 9.4 6.3 6.4
Lab Results - Chemistry
11/11/23 11/13/23 11/14/23
17:57 08:08 06:20
BUN 22 H 21 H 20 H
Creatinine 0.5 L 0.6 0.6
Estimated Creat Clear 91 91
Albumin 4.2 3.6 3.7
11/11/23 11/11/23
17:57 21:45
Lactic Acid 0.6 L Cancelled
Microbiology Results
11/11/23 17:57 Blood Culture - Preliminary
Blood/Venous No Growth in 48 hours- Final report to follow
11/11/23 17:57 Blood Culture - Preliminary
Blood/Venous No Growth in 48 hours- Final report to follow
11/13/23 11:07 Gram Stain - Preliminary
Leg - Left
11/12/23 00:06 MRSA Screen - Final
Nose Staph aureus MRSA
Therapeutic Drug Monitoring
Vancomycin Peak 30.9 ug/ml (18-26) H 11/13/23 20:47
Vancomycin Trough 16.2 ug/ml (5-20) 11/14/23 06:20
[2023-11-14] MEDS: VITAMIN D3 (cholecalciferol) 50 MCG PO (08:43)
[2023-11-14] MEDS: VITAMIN B-12 2000 MCG PO (08:43)
[2023-11-14] MEDS: VITAMIN C 2000 MG PO (08:43)
--- NOTE | 2023-11-14 13:00 | W.PN.HOSP.TC ---
Addendum entered and electronically signed by Yasir Patel MD 11/14/23 17:04:
Total time spent on d/c = 34 min. This included today's physical exam, progress note, review of laboratory and diagnostic data, preparation of discharge documents and prescriptions, and discussions about the pt's hospital course and discharge plan
with the patient and other medical doctor md involved in the patient's care.
Original Note:
Today's Communication/Plan
-
Will discuss timing of discharge with infectious disease.
Assessment / Plan
Assessment / Plan
Gen: NAD, AAOx3.
Eyes: EOMI, PERRLA, no scleral icterus.
Neck: supple.
CV: RRR, +S1/S2, no m/r/g.
Resp: CTAB, no rales, wheezes, or rhonchi.
Abd: +BS, soft, NT, ND
Skin: Both lower extremities with well-demarcated erythema with skin desquamation just distal to the knees. Both lower extremities have ulcers without purulent discharge.
Neuro: CN 2-12 intact, non-focal.
Psych: Normal mood and affect.
Worsening Bilateral Lower Extremity Wounds due to underlying pyoderma gangrenosum with superimposed cellulitis:
-currently following with dermatology at [facility]; per patient she has not been able to tolerate steroids and due to side effect profile she does not want steroids
-Wound Care following
-Continue Vanco/Zosyn as per ID
-BCxs NG x 48 hours
Other problems:
Hypothyroidism: Continue levothyroxine
Mild hyponatremia
Anemia of chronic disease
Rheumatoid Arthritis
h/o Lupus: holding Rinvoq given concern for acute infection. Per patient she is soon to be started on remicade infusions.
FULL/Lovenox
Anticipated Discharge: Within 24 hours
Subjective/Interval History
-
Date of Service: November 14, 2023
No new complaints.
Objective Data
-
Labs:
Laboratory Results
11/14/23
06:20
WBC 6.4
Hgb 10.4 L
Hct 32.2 L
Plt Count 290
Sodium 135
Potassium 4.5
Chloride 100
Carbon Dioxide 26
BUN 20 H
Creatinine 0.6
Glucose 100 H
Calcium 9.1
Total Bilirubin 0.4
AST 18
ALT 16
Alkaline Phosphatase 66
Vital Signs:
Vital Signs
Temp Pulse Resp BP Pulse Ox
97.5 F 46 18 124/52 100
11/14/23 07:30 11/14/23 07:30 11/14/23 07:30 11/14/23 07:30 11/14/23 07:30
I&O
11/13/23 11/14/23 11/15/23
06:59 06:59 06:59
Intake Total 2415 / 2415 720 / 720
Balance 2415 / 2415 720 / 720
--- NOTE | 2023-11-14 14:39 | W.PN.ID1 ---
Date of Service
Date of Service: November 14, 2023
Today's Communication
Consolidate antibiotics to doxycycline and topical clotrimazole
Assessment / Plan
Lower extremity erythema
-Not clear whether secondary to cellulitis or contact dermatitis secondary to recent gentamicin application
- possible fungal component
Bilateral lower extremity wounds
Reported history of pyoderma gangrenosum
-Patient reports history of biopsy of area
Suspected bilateral lower extremity venous insufficiency
Obesity
Rheumatoid arthritis
Recommendations:
At present, not clear if erythema is cellulitis or dermatitis. Little improvement on broad-spectrum antibiotics which may make the latter diagnosis more likely.
Lower extremity elevation recommended to the patient, but patient declined secondary to hip discomfort from her rheumatoid arthritis
Advised lower extremity compression, but patient declined stating that it is too painful.
Etiology of fine LE pustules unclear, although budding hyphae seen on microscopy.
Would add topical clotrimazole, to start in a more localized area and see if there is any improvement.
I have placed a call out to the patient's dam worker (Dr. Sarah Das M.D. at [facility]). The patient reports that she will be seeing her very early next week.
Will switch to oral doxycycline.
����������������������������������������������������������
Chief Complaint
-: Cellulitis
Subjective / Review of Systems
Review of Systems: No Fever and No Chills
Vital Signs / Physical Exam
Vital Signs
Vital Signs
Temp Pulse Resp BP Pulse Ox
97.5 F 46 18 124/52 100
11/14/23 07:30 11/14/23 07:30 11/14/23 07:30 11/14/23 07:30 11/14/23 07:30
Physical Exam
Constitutional: Comfortable and Non-toxic
Eyes: Sclera Anicteric
Gastrointestinal: Non Distended
Extremities: Edema, Erythema and Other (diffuse pustules LE's B/L. Extreamly friable skin.)
Neurological: Awake and Alert
Psychological: Calm
Objective Data
Lab Data
Lab Results
11/14/23 06:20
11/14/23 06:20
Estimated Creat Clear 91 ml/min 11/14/23 06:20
Lactic Acid Cancelled 11/11/23 21:45
Total Bilirubin 0.4 mg/dl (0.2-1.3) 11/14/23 06:20
AST 18 U/L (14-36) 11/14/23 06:20
ALT 16 U/L (0-35) 11/14/23 06:20
Alkaline Phosphatase 66 U/L (38-126) 11/14/23 06:20
Most recent labs reviewed.
Micro Results:
11/11/23 17:57 Blood Culture - Preliminary
Blood/Venous No Growth in 48 hours- Final report to follow
11/11/23 17:57 Blood Culture - Preliminary
Blood/Venous No Growth in 48 hours- Final report to follow
11/13/23 11:07 Wound Culture - Pending
Leg - Left Gram Stain - Preliminary
11/12/23 00:06 MRSA Screen - Final
Nose Staph aureus MRSA
Care Review
Plan reviewed with: Physician (Hospitalist)
--- NOTE | 2023-11-14 15:16 | CM ---
Patient seen bedside.
Patient with LE wounds open to air.
Per patient plan remains home with [facility].
Plan: home with [facility] when stable.
[2023-11-14 15:30] VITALS: BP 116/43
--- NOTE | 2023-11-14 17:05 | W.DCSUMMARY ---
Discharge Summary
Discharge Data
Date of Admission: 11/11/23
Date of Discharge: 11/15/23
-
Pending Results: No
Hospital Course
Primary diagnoses:
Bilateral lower extremity chronic venous stasis dermatitis with possible pyoderma gangrenosum and possible superimposed cellulitis
Secondary diagnoses:
Hypothyroidism
Mild hyponatremia
Anemia of chronic disease
Rheumatoid Arthritis
h/o Lupus
Consultants:
Infectious disease
Imaging:
None
Hospital course: 68-year-old female who presented with chief complaint of worsening bilateral lower extremity wound as outlined in the H&P done on admission. Patient reportedly had a history of pyoderma gangrenosum. She had been seeing a
watch assembler for the management of this. She felt her erythema was worsening. She was placed on vancomycin and Zosyn. She was seen in consultation by infectious disease as well as wound care. She had no leukocytosis and was afebrile throughout
hospitalization. I discussed the case with Dr. Heard on the day of discharge. He felt the patient had chronic venous stasis dermatitis and possibly superimposed cellulitis with a possible fungal component. He recommended discharge on
clotrimazole topically and 1 week of doxycycline.
Discharge Plan
-
Patient Disposition: Home (Routine Discharge)
Discharge Diagnosis/Procedures: Bilateral lower extremity chronic venous stasis dermatitis with possible pyoderma gangrenosum and possible superimposed cellulitis
Condition: Good
Diet: No restrictions
Activity: As tolerated
Additional Activity: Recommend elevating legs when not ambulating
Driving Restrictions: As prior to admission
Bathing Restrictions: None
Activity Restrictions/Additional Instructions:
Wound Care Instructions
Legs: clean legs and feet with Vashe, soak wounds for few minutes with Vashe.
Can also shower to clean legs and wounds if able.
Apply Vaseline to legs and feet, Vaseline onto Telfa then place into open wounds. Dressings to be changed bid.
Leg elevation when sitting
Follow up with [employer]
Referrals:
Andrea Mederos, DO [Family Provider] - in less than 1 week
Prescriptions:
New
doxycycline hyclate 100 mg Capsule
100 mg PO Q12 Qty: 15 0RF
clotrimazole [Athlete's Foot (clotrimazole)] 1 % Cream
1 applic topical BID Qty: 90 0RF
Continued
levothyroxine 125 MCG tablet
125 mcg PO DAILY@0700
Patient Comments:
11/11/2023: PT STATES NEEDS BRAND NAME Pt brought with her.
ascorbic acid (vitamin C) [Vitamin C] 500 MG tablet
2,000 mg PO DAILY
Patient Comments:
Stopped for surgery
cholecalciferol (vitamin D3) 2,000 UNITS tablet
2,000 units PO DAILY
Patient Comments:
Stopped for surgery
pediatric multivitamin no.17 1 TABLET tablet,chewable
1 ea PO DAILY
ibuprofen 600 mg tablet
600 mg PO Q8H PRN (Reason: mild pain)
Rinvoq 15 mg tablet extended release 24 hr
15 mg PO DAILY@2000
Patient Comments:
11/11/2023: Pt brought with her
cyanocobalamin (vitamin B-12) [Vitamin B-12] 1,000 mcg Tablet
2,000 mcg PO DAILY
acetaminophen 500 mg Tablet
1,000 mg PO Q6H PRN (Reason: mild pain)
acetylcysteine [NAC] 600 mg Capsule
600 mg PO DAILY@1500
Discharge Orders:
Discharge Patient (As Directed); Ordered 11/14/23
Ordered By: Yasir Patel
[2023-11-14] MEDS: VIBRAMYCIN 100 MG PO (20:46)
[2023-11-14] MEDS: LOTRIMIN 1% CREAM 1 APPLIC TOPICAL (21:27)
[2023-11-14 22:58] VITALS: BP 139/59
[2023-11-15] MEDS: TYLENOL 1000 MG PO ×2 (01:07→08:02)
[2023-11-15] MEDS: TORADOL 15 MG IV (03:54)
--- NOTE | 2023-11-15 07:49 | W.PN.HOSP.TC ---
Today's Communication/Plan
-
pt was discharge yesterday, will leave today
Assessment / Plan
Assessment / Plan
Gen: NAD, AAOx3.
Eyes: EOMI, PERRLA, no scleral icterus.
Neck: supple.
CV: remains RRR, +S1/S2, no m/r/g.
Resp: remains CTAB, no rales, wheezes, or rhonchi.
Abd: +BS, soft, NT, ND
Skin: Both lower extremities with well-demarcated erythema with skin desquamation just distal to the knees. Both lower extremities have ulcers without purulent discharge.
Neuro: CN 2-12 intact, non-focal.
Psych: Normal mood and affect.
Worsening Bilateral Lower Extremity Wounds due to underlying pyoderma gangrenosum with superimposed cellulitis:
-currently following with dermatology at [facility]; per patient she has not been able to tolerate steroids and due to side effect profile she does not want steroids
-Wound Care following
-was on Vanco/Zosyn, now on Doxy/Clotrimazole as per ID
-BCxs NG x 48 hours
Other problems:
Hypothyroidism: Continue levothyroxine
Mild hyponatremia
Anemia of chronic disease
Rheumatoid Arthritis
h/o Lupus: holding Rinvoq given concern for acute infection. Per patient she is soon to be started on remicade infusions.
FULL/Lovenox
Pt was discharged yesterday.
Anticipated Discharge: Today
Subjective/Interval History
-
Date of Service: November 15, 2023
No new complaints.
Objective Data
-
Vital Signs:
Vital Signs
Temp Pulse Resp BP Pulse Ox
97.8 F 49 18 139/59 97
11/14/23 22:58 11/14/23 22:58 11/14/23 22:58 11/14/23 22:58 11/14/23 22:58
I&O
11/14/23 11/15/23 11/16/23
06:59 06:59 06:59
Intake Total 720 / 720 720 / 720
Balance 720 / 720 720 / 720
[2023-11-15] MEDS: VITAMIN B-12 2000 MCG PO (07:59)
[2023-11-15] MEDS: VITAMIN D3 (cholecalciferol) 50 MCG PO (07:59)
[2023-11-15] MEDS: NON-FORMULARY ITEM 1 MCG PO (07:59)
[2023-11-15] MEDS: LOTRIMIN 1% CREAM TOPICAL (07:59)
[2023-11-15] MEDS: VITAMIN C 2000 MG PO (07:59)
[2023-11-15] MEDS: VIBRAMYCIN 100 MG PO ×2 (07:59→18:00)
[2023-11-15 08:07] VITALS: BP 160/61
--- NOTE | 2023-11-15 09:18 | CM ---
Patient seen at bedside. Patient stated that she will have her son transport her home after work and nurse was aware of discharge and getting patient medications as per request. Patient completed IMM and signed form placed on chart. Patient with
questions about restarting of medications and physician addressed. CM will continue to follow for discharge planning needs.
Plan; home with [facility] to follow
--- NOTE | 2023-11-15 13:36 | W.PN.ID1 ---
Date of Service
Date of Service: November 15, 2023
Today's Communication
Continue antibiotics
Assessment / Plan
Lower extremity erythema
-Not clear whether secondary to cellulitis or contact dermatitis secondary to recent gentamicin application
- possible fungal component +/- some type of pustular dermatosis.
Bilateral lower extremity wounds
Reported history of pyoderma gangrenosum
-Patient reports history of biopsy of area, although current event producer reports no note of pathology or biopsy in reviewed notes from prior event producer.
Suspected bilateral lower extremity venous insufficiency
Obesity
Rheumatoid arthritis
Recommendations:
At present, not clear if erythema is cellulitis or dermatitis. Little improvement on broad-spectrum antibiotics which may make the latter diagnosis more likely.
Lower extremity elevation recommended to the patient, but patient declined secondary to hip discomfort from her rheumatoid arthritis. I have counseled her on the importance of lower extremity elevation. I have suggested that the use of a couch
with legs elevated may be more beneficial than attempting to raise her legs and only in a recliner.
Advised lower extremity compression, but patient declined stating that it is too painful.
Etiology of fine LE pustules unclear, although budding hyphae seen on microscopy.
I spoke to the patient's event producer (Dr. Sarah Das M.D. at [facility]) yesterday. The will be seeing her very early next week.
Continue oral doxycycline.
Of note, full cultures of the leg are not back yet. These were superficial cultures and it would be exceedingly difficult to determine colonization versus infecting organisms.
����������������������������������������������������������
Chief Complaint
-: Cellulitis
Subjective / Review of Systems
Patient seen and examined. Currently sitting on edge of bed with legs dependent. Clotrimazole applied to the legs this a.m., although patient found the application to painful especially in the feet area.
Review of Systems: No Fever and No Chills
Vital Signs / Physical Exam
Vital Signs
Vital Signs
Temp Pulse Resp BP Pulse Ox
97.7 F 46 16 160/61 100
11/15/23 08:07 11/15/23 08:07 11/15/23 08:07 11/15/23 08:07 11/15/23 08:07
Physical Exam
Constitutional: No Acute Distress, Comfortable and Non-toxic
Pulmonary: Non Labored
Extremities: Edema and Erythema
Objective Data
Lab Data
Lab Results
11/14/23 06:20
11/14/23 06:20
Estimated Creat Clear 91 ml/min 11/14/23 06:20
Lactic Acid Cancelled 11/11/23 21:45
Total Bilirubin 0.4 mg/dl (0.2-1.3) 11/14/23 06:20
AST 18 U/L (14-36) 11/14/23 06:20
ALT 16 U/L (0-35) 11/14/23 06:20
Alkaline Phosphatase 66 U/L (38-126) 11/14/23 06:20
Most recent labs reviewed.
Micro Results:
11/13/23 11:07 Wound Culture - Preliminary
Leg - Left Gram negative bacilli
Staphylococcus aureus
Hilary albicans
Gram Stain - Preliminary
11/11/23 17:57 Blood Culture - Preliminary
Blood/Venous No Growth in 72 hours- Final report to follow
11/11/23 17:57 Blood Culture - Preliminary
Blood/Venous No Growth in 72 hours- Final report to follow
11/12/23 00:06 MRSA Screen - Final
Nose Staph aureus MRSA
Care Review
Plan reviewed with: Physician (Hospitalist)
[2023-11-15 15:02] VITALS: BP 138/68
== END 2023-11-15 18:39 | disposition home health service (06) | DRG 603 ==
LOC: 4 WEST ACU 20:50
PROVIDERS: Internal Medicine; ADMITTING PHYSICIAN Hospitalist; ATTENDING PHYSICIAN Internal Medicine; EMERGENCY PHYSICIAN Emergency Medicine; FAMILY PHYSICIAN Family Medicine; OTHER PHYSICIAN Internal Medicine Infectious Disease
DX: L88 Pyoderma gangrenosum (principal); E87.1 Hypo-osmolality and hyponatremia; L97.929 Non-pressure chronic ulcer of unspecified part of left lower leg with unspecified severity; L97.919 Non-pressure chronic ulcer of unspecified part of right lower leg with unspecified severity; M06.9 Rheumatoid arthritis, unspecified; M32.9 Systemic lupus erythematosus, unspecified; E03.9 Hypothyroidism, unspecified; F32.A Depression, unspecified; L03.116 Cellulitis of left lower limb; L03.115 Cellulitis of right lower limb; E66.9 Obesity, unspecified; I89.0 Lymphedema, not elsewhere classified; I87.2 Venous insufficiency (chronic) (peripheral); D63.8 Anemia in other chronic diseases classified elsewhere; B96.5 Pseudomonas (aeruginosa) (mallei) (pseudomallei) as the cause of diseases classified elsewhere; I09.9 Rheumatic heart disease, unspecified; K58.9 Irritable bowel syndrome, unspecified; Z79.890 Hormone replacement therapy; Z79.1 Long term (current) use of non-steroidal anti-inflammatories (NSAID); Z79.82 Long term (current) use of aspirin; Z96.653 Presence of artificial knee joint, bilateral; Z96.641 Presence of right artificial hip joint; Z88.5 Allergy status to narcotic agent; Z88.1 Allergy status to other antibiotic agents; Z91.040 Latex allergy status; Z68.35 Body mass index [BMI] 35.0-35.9, adult
CPT/HCPCS: 80053; 80202; 83605; 85025; 87040; 87070; 87077; 87147; 87186; 87205; 96365; 96367; 99285